=== PATIENT | male | born 1990 | race Two or more races ===

== ENCOUNTER 2017-08-24 10:20 | Emergency (ER) | payer MEDICAID ==
[~2017-08-24] VITALS: Ht 170.2 cm; Wt 63.0 kg
[2017-08-24 10:33] VITALS: BP 115/90
[2017-08-24] MEDS ORDERED: HYDROcodone/acetaminophen 10/325mg tab PO ONE (12:40)
== END 2017-08-24 13:41 | disposition home or self-care (01) ==
LOC: ER 10:21
DX: S90.212A Contusion of left great toe with damage to nail, initial encounter (principal); W20.8XXA Other cause of strike by thrown, projected or falling object, initial encounter; Y93.89 Activity, other specified; Y92.89 Other specified places as the place of occurrence of the external cause; Y99.8 Other external cause status
CPT/HCPCS: 11740; 73660; 99284; A6449

== ENCOUNTER 2019-10-22 08:19 | Emergency (ER) | payer MEDICAID ==
[~2019-10-22] VITALS: Ht 172.7 cm; Wt 80.0 kg
[2019-10-22] MEDS ORDERED: metoclopramide 5 mg/ml inj IV ONE (08:35)
[2019-10-22] MEDS ORDERED: normal saline 1000ML IV soln IVB ONE (08:35)
--- NOTE | 2019-10-22 08:40 | NUR ---
Dr Campbell made aware patient has history of vertigo and is requesting meclizine. No new orders and this time.
[2019-10-22 08:51] LABS: BASOPHILS # (AUTO) 0.1 X10'3 (0-0.2); BASOPHILS % (AUTO) 1.1 % (0-1); EOSINOPHILS # (AUTO) 0.3 X10'3 (0-0.9); EOSINOPHILS % (AUTO) 2.8 % (0-6); HEMATOCRIT 48.6 % (42.0-52.0); HEMOGLOBIN 16.5 g/dl (14.0-17.9); LYMPHOCYTES # (AUTO) 3.4 X10'3 (1.1-4.8); LYMPHOCYTES % (AUTO) 28.7 % (21-51); MEAN CORPUSCULAR HEMOGLOBIN 30.5 PG (27.0-31.0); MEAN CORPUSCULAR VOLUME 89.6 FL (78-98); MEAN PLATELET VOLUME 7.6 FL (7.4-10.4); MONOCYTES # (AUTO) 0.8 X10'3 (0-0.9); MONOCYTES % (AUTO) 6.9 % (2-12); NEUTROPHILS # (AUTO) 7.2 X10'3 (1.8-7.7); NEUTROPHILS % (AUTO) 60.5 % (42-75); PLATELET COUNT 330 X10'3 (140-440); RED BLOOD COUNT 5.42 X10'6 (4.70-6.10); RED CELL DISTRIBUTION WIDTH 12.8 % (11.5-14.5); WHITE BLOOD COUNT 11.9 X10'3 (4.5-11.0)
[2019-10-22 09:10] LABS: ALANINE AMINOTRANSFERASE 33 U/L (12-78); ALBUMIN 4.4 G/DL (3.4-5.0); ALBUMIN/GLOBULIN RATIO 1.2 (1.1-1.5); ALKALINE PHOSPHATASE 61 IU/L (46-116); AMYLASE 81 U/L (25-115); ANION GAP 12 (8-16); ASPARTATE AMINO TRANSFERASE 35 U/L (10-37); BILIRUBIN,TOTAL 0.6 MG/DL (0.1-1.0); BLOOD UREA NITROGEN 14 MG/DL (7-18); BUN/CREATININE RATIO 15.1 (5.4-32.0); CALCIUM 9.6 MG/DL (8.5-10.1); CHLORIDE 102 MMOL/L (99-107); CREATININE 0.93 MG/DL (0.60-1.10); GLUCOSE 173 MG/DL (70-104); LIPASE 87 U/L (73-393); POTASSIUM 3.7 MMOL/L (3.5-5.1); SODIUM 139 MMOL/L (135-145); TOTAL CARBON DIOXIDE 24.9 MMOL/L (24-32); TOTAL PROTEIN 8.1 G/DL (6.4-8.2); eGFR > 90 ML/MIN
--- NOTE | 2019-10-22 09:35 | NUR ---
MECLIZINE REQUESTED PER PT TO DR. BRIAN MD PLACING ORDERS.
[2019-10-22] MEDS ORDERED: meclizine 12.5mg tablet PO ONE (09:45)
[2019-10-22 11:11] LABS: COLOR,URINE YELLOW (Yellow); GLUCOSE, URINE NEGATIVE (Neg); KETONES,URINE NEGATIVE (Neg); LEUKOCYTE ESTERASE ,URINE NEGATIVE (Neg); NITRITES, URINE NEGATIVE (Neg); OCCULT BLOOD,URINE NEGATIVE (Neg); PROTEIN,URINE NEGATIVE (Neg); UROBILINOGEN,URINE 0.2 E.U/dL (0.2-1.0)
[2019-10-22 11:20] LABS: BACTERIA,URINE NONE SEEN /HPF (Neg); CLARITY,URINE SLIGHTLY CLOUDY (Clear); RBC,URINE NONE SEEN /HPF (0-2); UA COLLECTION TYPE CLN CATCH MIDSTREAM; WBC,URINE 0-4 /HPF (0-4)
[2019-10-22 11:21] LABS: MUCUS STRANDS MANY /LPF (Neg); SQUAMOUS EPITHELIAL CELL,UR NONE SEEN /LPF (FEW)
[2019-10-22] MEDS ORDERED: MECL-159 PO (11:50)
[2019-10-22 12:08] VITALS: BP 105/68
== END 2019-10-22 12:00 | disposition home or self-care (01) ==
LOC: ER 08:20
DX: R42 Dizziness and giddiness (principal); R11.0 Nausea; H93.12 Tinnitus, left ear; Z72.89 Other problems related to lifestyle; Z79.899 Other long term (current) drug therapy
CPT/HCPCS: 36415; 70450; 80053; 81001; 82150; 83690; 85025; 96361; 96374; 99284; J2765; J7030; J8597

== ENCOUNTER 2020-08-23 14:39 | Emergency (ER) | payer MEDICAID ==
[~2020-08-23] VITALS: Ht 175.3 cm; Wt 72.8 kg
[~2020-08-23 14:39] MED LIST: MECL-159 PO
[2020-08-23] MEDS ORDERED: metoclopramide 5 mg/ml inj IV ONE (15:50)
[2020-08-23] MEDS ORDERED: normal saline 1000ML IV soln IVB ONE (15:50)
[2020-08-23 16:17] LABS: BASOPHILS % (AUTO) 0.3 % (0-1); EOSINOPHILS # (AUTO) 0.1 X10'3 (0-0.9); EOSINOPHILS % (AUTO) 0.9 % (0-6); HEMATOCRIT 45.6 % (42.0-52.0); HEMOGLOBIN 15.5 g/dl (14.0-17.9); LYMPHOCYTES # (AUTO) 1.4 X10'3 (1.1-4.8); MEAN CORPUSCULAR HEMOGLOBIN 30.5 PG (27.0-31.0); MEAN CORPUSCULAR HGB CONC 33.9 g/dL (33.0-36.5); MEAN CORPUSCULAR VOLUME 90.1 FL (78-98); MEAN PLATELET VOLUME 7.6 FL (7.4-10.4); MONOCYTES # (AUTO) 0.8 X10'3 (0-0.9); MONOCYTES % (AUTO) 5.6 % (2-12); NEUTROPHILS # (AUTO) 11.4 X10'3 (1.8-7.7); NEUTROPHILS % (AUTO) 83.2 % (42-75); PLATELET COUNT 311 X10'3 (140-440); RED BLOOD COUNT 5.06 X10'6 (4.70-6.10); RED CELL DISTRIBUTION WIDTH 13.2 % (11.5-14.5); WHITE BLOOD COUNT 13.7 X10'3 (4.5-11.0)
[2020-08-23 16:28] LABS: ALANINE AMINOTRANSFERASE 22 U/L (12-78); ALBUMIN 4.1 G/DL (3.4-5.0); ALBUMIN/GLOBULIN RATIO 1.2 (1.1-1.5); ALKALINE PHOSPHATASE 56 IU/L (46-116); ANION GAP 7 (8-16); ASPARTATE AMINO TRANSFERASE 23 U/L (10-37); BILIRUBIN,TOTAL 0.3 MG/DL (0.1-1.0); BLOOD UREA NITROGEN 15 MG/DL (7-18); BUN/CREATININE RATIO 14.9 (5.4-32.0); CALCIUM 9.3 MG/DL (8.5-10.1); CHLORIDE 103 MMOL/L (99-107); CREATININE 1.01 MG/DL (0.60-1.10); GLUCOSE 105 MG/DL (70-104); POTASSIUM 4.6 MMOL/L (3.5-5.1); SODIUM 141 MMOL/L (135-145); TOTAL CARBON DIOXIDE 30.7 MMOL/L (24-32); TOTAL PROTEIN 7.6 G/DL (6.4-8.2); eGFR 86 ML/MIN
[2020-08-23] MEDS ORDERED: MECL-159 PO (17:28)
[2020-08-23 17:44] VITALS: BP 108/56
== END 2020-08-23 17:45 | disposition home or self-care (01) ==
LOC: ER 14:40
DX: R55 Syncope and collapse (principal); R42 Dizziness and giddiness; R11.0 Nausea; Z72.89 Other problems related to lifestyle; Z79.899 Other long term (current) drug therapy
CPT/HCPCS: 36415; 80053; 82948; 85025; 93005; 96361; 96374; 99284; J2765; J7030

== ENCOUNTER 2023-02-12 07:45 | Emergency (ER) | payer MEDICAID ==
[~2023-02-12] VITALS: Ht 175.3 cm; Wt 74.0 kg
[~2023-02-12 07:45] MED LIST changes: -MECL-159 PO; +MECL-302 PO
[2023-02-12 07:48] VITALS: TEMP 98.6
[2023-02-12] MEDS ORDERED: ondansetron/PF 4mg/2ml inj IV STA (08:06)
[2023-02-12] MEDS ORDERED: LIDOcaine Viscous 15ml cup MM STA (08:06)
[2023-02-12] MEDS ORDERED: HYDROmorphone 1 mg/ml syringe IV STA (08:06)
[2023-02-12] MEDS ORDERED: mag hydrox/Alum hydrox/simeth 30ml oral suspension PO STA (08:10)
[2023-02-12] MEDS ORDERED: normal saline 1000ml 1,000 ML IV ONE ×2 (08:10)
[2023-02-12 08:49] LABS: BASOPHILS # (AUTO) 0.1 X10'3 (0-0.2); BASOPHILS % (AUTO) 0.4 % (0-1); EOSINOPHILS % (AUTO) 0.1 % (0-6); HEMATOCRIT 46.5 % (42.0-52.0); HEMOGLOBIN 15.5 g/dl (14.0-17.9); LYMPHOCYTES # (AUTO) 1.1 X10'3 (1.1-4.8); MEAN CORPUSCULAR HEMOGLOBIN 29.5 PG (27.0-31.0); MEAN CORPUSCULAR HGB CONC 33.4 g/dL (33.0-36.5); MEAN CORPUSCULAR VOLUME 88.3 FL (78-98); MEAN PLATELET VOLUME 7.9 FL (7.4-10.4); MONOCYTES # (AUTO) 0.8 X10'3 (0-0.9); MONOCYTES % (AUTO) 4.2 % (2-12); NEUTROPHILS # (AUTO) 16.4 X10'3 (1.8-7.7); NEUTROPHILS % (AUTO) 89.3 % (42-75); PLATELET COUNT 336 X10'3 (140-440); RED BLOOD COUNT 5.26 X10'6 (4.70-6.10); RED CELL DISTRIBUTION WIDTH 12.8 % (11.5-14.5); WHITE BLOOD COUNT 18.4 X10'3 (4.5-11.0)
[2023-02-12 09:05] LABS: ALANINE AMINOTRANSFERASE 21 U/L (12-78); ALBUMIN 4.3 G/DL (3.4-5.0); ALKALINE PHOSPHATASE 73 IU/L (46-116); ANION GAP 16 (8-16); ASPARTATE AMINO TRANSFERASE 22 U/L (10-37); BILIRUBIN,TOTAL 0.6 MG/DL (0.1-1.0); BLOOD UREA NITROGEN 8 MG/DL (7-18); BUN/CREATININE RATIO 7.7 (10.0-20.0); CALCIUM 9.6 MG/DL (8.5-10.1); CHLORIDE 101 MMOL/L (99-107); CREATININE 1.04 MG/DL (0.60-1.10); GLUCOSE 147 MG/DL (70-104); POTASSIUM 3.4 MMOL/L (3.5-5.1); SODIUM 139 MMOL/L (135-145); TOTAL CARBON DIOXIDE 21.8 MMOL/L (24-32); TOTAL PROTEIN 8.4 G/DL (6.4-8.2); eCRCL 101 ML/MIN; eGFR 82 ML/MIN
[2023-02-12 09:07] LABS: LIPASE 21 U/L (16-77)
[2023-02-12 10:17] LABS: BILIRUBIN,URINE NEGATIVE (Neg); CLARITY,URINE CLEAR (Clear); COLOR,URINE YELLOW (Yellow); GLUCOSE, URINE NEGATIVE (Neg); KETONES,URINE NEGATIVE (Neg); LEUKOCYTE ESTERASE ,URINE NEGATIVE (Neg); NITRITES, URINE NEGATIVE (Neg); OCCULT BLOOD,URINE NEGATIVE (Neg); PH,URINE 8.5 (4.8-8.0); PROTEIN,URINE TRACE mg/dl (Neg); UROBILINOGEN,URINE 0.2 E.U/dL (0.2-1.0)
[2023-02-12 10:21] LABS: BACTERIA,URINE NONE SEEN /HPF (Neg); MUCUS STRANDS FEW /LPF (Neg); RBC,URINE 0-2 /HPF (0-2); SQUAMOUS EPITHELIAL CELL,UR NONE SEEN /LPF (FEW); UA COLLECTION TYPE CLN CATCH MIDSTREAM; WBC,URINE 0-4 /HPF (0-4)
[2023-02-12] MEDS ORDERED: SULF1TAB49 PO (10:42)
[2023-02-12] MEDS ORDERED: HYDR-3965 PO (10:42)
[2023-02-12] MEDS ORDERED: LANS30CA37 PO (10:42)
[2023-02-12] MEDS ORDERED: ONDA4TAB12 PO (10:42)
[2023-02-12 10:53] VITALS: BP 106/59; PULSE 81; RESP 14; O2SAT 98
== END 2023-02-12 10:58 | disposition home or self-care (01) ==
LOC: ER 07:45
DX: K29.00 Acute gastritis without bleeding (principal); K63.89 Other specified diseases of intestine; Z79.899 Other long term (current) drug therapy
CPT/HCPCS: 36415; 74176; 80053; 81001; 83690; 84484; 85025; 93005; 96361; 96374; 96375; 99285; J1170; J2405; J7030

== ENCOUNTER 2023-02-13 08:15 | Emergency (ER) | payer MEDICAID ==
[~2023-02-13] VITALS: Ht 175.3 cm; Wt 75.1 kg
[~2023-02-13 08:15] MED LIST changes: +HYDR-3965 PO; +LANS30CA37 PO; +ONDA4TAB12 PO; +SULF1TAB49 PO
[2023-02-13 08:46] LABS: BASOPHILS % (AUTO) 0.1 % (0-1); EOSINOPHILS % (AUTO) 0.1 % (0-6); HEMATOCRIT 43.7 % (42.0-52.0); HEMOGLOBIN 14.7 g/dl (14.0-17.9); LYMPHOCYTES # (AUTO) 0.6 X10'3 (1.1-4.8); LYMPHOCYTES % (AUTO) 4.2 % (21-51); MEAN CORPUSCULAR HEMOGLOBIN 29.9 PG (27.0-31.0); MEAN CORPUSCULAR HGB CONC 33.7 g/dL (33.0-36.5); MEAN CORPUSCULAR VOLUME 88.8 FL (78-98); MEAN PLATELET VOLUME 7.4 FL (7.4-10.4); MONOCYTES # (AUTO) 0.7 X10'3 (0-0.9); NEUTROPHILS # (AUTO) 12.4 X10'3 (1.8-7.7); NEUTROPHILS % (AUTO) 90.6 % (42-75); PLATELET COUNT 262 X10'3 (140-440); RED BLOOD COUNT 4.92 X10'6 (4.70-6.10); WHITE BLOOD COUNT 13.7 X10'3 (4.5-11.0)
[2023-02-13 09:03] LABS: ALANINE AMINOTRANSFERASE 19 U/L (12-78); ALBUMIN 3.5 G/DL (3.4-5.0); ALBUMIN/GLOBULIN RATIO 0.8 (1.1-1.5); ALKALINE PHOSPHATASE 63 IU/L (46-116); AMYLASE 53 U/L (25-115); ANION GAP 8 (8-16); ASPARTATE AMINO TRANSFERASE 21 U/L (10-37); BILIRUBIN,TOTAL 0.8 MG/DL (0.1-1.0); BLOOD UREA NITROGEN 9 MG/DL (7-18); BUN/CREATININE RATIO 9.6 (10.0-20.0); CALCIUM 8.7 MG/DL (8.5-10.1); CHLORIDE 100 MMOL/L (99-107); CREATININE 0.94 MG/DL (0.60-1.10); GLUCOSE 140 MG/DL (70-104); LIPASE 17 U/L (16-77); POTASSIUM 3.8 MMOL/L (3.5-5.1); SODIUM 134 MMOL/L (135-145); TOTAL CARBON DIOXIDE 26.2 MMOL/L (24-32); eCRCL 111 ML/MIN; eGFR > 90 ML/MIN
[2023-02-13] MEDS ORDERED: acetaminophen 325mg tablet PO STA (09:21)
[2023-02-13] MEDS ORDERED: ondansetron 4mg rapidly disintigrating tab PO STA (09:21)
[2023-02-13] MEDS ORDERED: HYDROcodone/acetaminophen 10/325mg tab PO STA (09:21)
[2023-02-13 12:57] LABS: BILIRUBIN,URINE NEGATIVE (Neg); CLARITY,URINE SLIGHTLY CLOUDY (Clear); COLOR,URINE YELLOW (Yellow); GLUCOSE, URINE NEGATIVE (Neg); KETONES,URINE NEGATIVE (Neg); LEUKOCYTE ESTERASE ,URINE NEGATIVE (Neg); NITRITES, URINE NEGATIVE (Neg); OCCULT BLOOD,URINE SMALL (Neg); PH,URINE 6.5 (4.8-8.0); PROTEIN,URINE TRACE mg/dl (Neg)
[2023-02-13 13:02] LABS: UA COLLECTION TYPE VOIDED
[2023-02-13 13:03] LABS: MUCUS STRANDS MANY /LPF (Neg); SQUAMOUS EPITHELIAL CELL,UR FEW /LPF (FEW)
[2023-02-13 13:04] LABS: BACTERIA,URINE FEW /HPF (Neg); TRANSITIONAL EPI CELLS,URINE FEW /HPF; WBC,URINE 0-4 /HPF (0-4)
[2023-02-13 13:05] LABS: CAL OXALATE CRYSTALS FEW /HPF (NEGATIVE)
[2023-02-13] MEDS ORDERED: acetaminophen 325mg tablet PO ONE (13:25)
[2023-02-13 13:54] LABS: BASOPHILS % (AUTO) 0.2 % (0-1); EOSINOPHILS % (AUTO) 0 % (0-6); HEMOGLOBIN 14.4 g/dl (14.0-17.9); LYMPHOCYTES # (AUTO) 0.4 X10'3 (1.1-4.8); LYMPHOCYTES % (AUTO) 3.5 % (21-51); MEAN CORPUSCULAR HEMOGLOBIN 29.7 PG (27.0-31.0); MEAN CORPUSCULAR HGB CONC 33.5 g/dL (33.0-36.5); MEAN CORPUSCULAR VOLUME 88.7 FL (78-98); MEAN PLATELET VOLUME 7.4 FL (7.4-10.4); MONOCYTES # (AUTO) 0.6 X10'3 (0-0.9); MONOCYTES % (AUTO) 4.7 % (2-12); NEUTROPHILS # (AUTO) 10.9 X10'3 (1.8-7.7); NEUTROPHILS % (AUTO) 91.6 % (42-75); PLATELET COUNT 253 X10'3 (140-440); RED BLOOD COUNT 4.85 X10'6 (4.70-6.10); WHITE BLOOD COUNT 11.9 X10'3 (4.5-11.0)
[2023-02-13 14:14] LABS: ALANINE AMINOTRANSFERASE 23 U/L (12-78); ALBUMIN 3.6 G/DL (3.4-5.0); ALBUMIN/GLOBULIN RATIO 0.9 (1.1-1.5); ALKALINE PHOSPHATASE 72 IU/L (46-116); ANION GAP 7 (8-16); ASPARTATE AMINO TRANSFERASE 33 U/L (10-37); BILIRUBIN,TOTAL 0.6 MG/DL (0.1-1.0); BLOOD UREA NITROGEN 10 MG/DL (7-18); BUN/CREATININE RATIO 10.1 (10.0-20.0); CALCIUM 8.6 MG/DL (8.5-10.1); CHLORIDE 98 MMOL/L (99-107); CREATININE 0.99 MG/DL (0.60-1.10); GLUCOSE 131 MG/DL (70-104); POTASSIUM 3.7 MMOL/L (3.5-5.1); SODIUM 132 MMOL/L (135-145); TOTAL CARBON DIOXIDE 26.6 MMOL/L (24-32); TOTAL PROTEIN 7.6 G/DL (6.4-8.2); eCRCL 105 ML/MIN; eGFR 87 ML/MIN
[2023-02-13] MEDS ORDERED: ibuprofen tablet 400 MG TABLET PO STA (14:16)
[2023-02-13] MEDS ORDERED: CefTRIAXone/D5W-Rocephin 1gm 50 ML IV STA (14:36)
[2023-02-13 15:20] LABS: URINE AMPHETAMINE SCREEN NEGATIVE (Neg); URINE BARBITUATE SCREEN NEGATIVE (Neg); URINE BENZODIAZEPINES SCREEN NEGATIVE (Neg); URINE CANNABINOID SCREEN POSITIVE (Neg); URINE COCAINE SCREEN NEGATIVE (Neg); URINE METHADONE SCREEN NEGATIVE (Neg); URINE OPIATE SCREEN POSITIVE (Neg); URINE PHENCYCLIDINE SCREEN NEGATIVE (Neg)
[2023-02-13] MEDS ORDERED: BUPIVAcaine 0.5% W/EPI /PF 30ml vial IJ ONE (15:45)
[2023-02-13] MEDS ORDERED: HYDROmorphone 1 mg/ml syringe IV STA ×2 (15:59→17:07)
[2023-02-13] MEDS ORDERED: normal saline 1000ml 1,000 ML IV ONE (17:10)
[2023-02-13 18:19] LABS: APPEARANCE,CSF CLEAR; CSF SUPERNATANT COLOR COLORLESS
[2023-02-13 18:20] LABS: CSF VOLUME 8 ML; TUBE# COUNTED 1
[2023-02-13 18:21] LABS: CSF RBC 12 /CU MM (0)
[2023-02-13 18:25] LABS: CSF WBC CT 0.6 /CU MM (0-5)
[2023-02-13 18:26] LABS: APPEARANCE,CSF CLEAR; CSF SUPERNATANT COLOR COLORLESS; CSF VOLUME 8 ML; CSF WBC CT 0 /CU MM (0-5); TUBE# COUNTED 4
[2023-02-13 18:27] LABS: CSF RBC 4 /CU MM (0)
[2023-02-13 18:32] LABS: GLUCOSE,CSF 78 MG/DL (40-75); TOTAL PROTEIN,CSF 47 MG/DL (15-45)
[2023-02-13 19:07] VITALS: BP 106/68; PULSE 68; RESP 16; TEMP 98.7; O2SAT 95
[2023-02-17 17:05] LABS: VDRL, CSF Non Reactive (Non Rea:<1:1)
[2023-02-20 13:31] LABS: CSF WEST NILE VIRUS, IGG Positive (Negative); CSF WEST NILE VIRUS, IGM Negative (Negative)
== END 2023-02-13 19:10 | disposition home or self-care (01) ==
LOC: ER 08:16
DX: R50.9 Fever, unspecified (principal); Z20.822 Contact with and (suspected) exposure to COVID-19; R05.9 Cough, unspecified; K62.5 Hemorrhage of anus and rectum; Z79.899 Other long term (current) drug therapy
CPT/HCPCS: 36415; 70450; 71045; 74018; 80053; 80305; 81001; 82150; 82945; 83605; 83690; 84145; 84157; 85025; 86592; 86788; 86789; 87015; 87040; 87070; 87077; 87186; 87502; 87503; 87529; 87811; 89051; 96361; 96365; 96375; 99285; J0696; J1170; J7030; A6449

== ENCOUNTER 2023-02-15 09:43 | Emergency (ER) | payer MEDICAID ==
[~2023-02-15] VITALS: Ht 175.3 cm; Wt 74.2 kg
[2023-02-15 09:44] VITALS: BP 127/55; PULSE 65; TEMP 98.1; O2SAT 99
[2023-02-15] MEDS ORDERED: AMOX-117 PO (10:24)
[2023-02-15] MEDS ORDERED: metoclopramide 5 mg/ml inj IM ONE (10:25)
[2023-02-15] MEDS ORDERED: ketorolac trometh inj. 60 MG/2 ML VIAL IM ONE (10:25)
[2023-02-15] MEDS ORDERED: diphenhydrAMINE 50 mg/ml inj IM ONE (10:25)
[2023-02-15] MEDS ORDERED: ketorolac trometh. 30mg/ml inj. IM ONE (10:30)
[2023-02-15 10:38] VITALS: RESP 17
== END 2023-02-15 11:16 | disposition home or self-care (01) ==
LOC: ER 09:44
DX: G43.909 Migraine, unspecified, not intractable, without status migrainosus (principal); J01.80 Other acute sinusitis
CPT/HCPCS: 96372; 99284; J1200; J1885; J2765